=== PATIENT | male | born 1960 | race Two or more races ===

== ENCOUNTER 2023-05-07 10:21 | Emergency (ER) | payer OTHER ==
[~2023-05-07] VITALS: Ht 170.2 cm; Wt 90.7 kg
[2023-05-07] MEDS ORDERED: ZESTRIL10 M1 (10:56)
[2023-05-07] MEDS ORDERED: TOPROL XL25 M1 (10:57)
[2023-05-07] MEDS ORDERED: ATORVASTATIN CA10 MG (10:57)
[2023-05-07 11:40] LABS: HEMATOCRIT 37.5 % (39.0-48.0); HEMOGLOBIN 12.2 g/dL (13-16.00); MEAN CELL VOLUME 88.8 fL (80.0-100.00); MEAN CORPUSCULAR HEMOGLOBIN 28.9 pg (27.00-32.0); MEAN CORPUSCULAR HGB CONC 32.5 g/dl (32.0-36.0); PLATELET COUNT 210 K/uL (150-450); RED BLOOD COUNT 4.22 M/uL (4.00-6.00); RED CELL DISTRIBUTION WIDTH 12.7 % (11.5-14.5)
[2023-05-07 11:56] LABS: INR 1.08; PARTIAL THROMBOPLASTIN TIME 29.6 SECONDS (22.0-34.0); PROTHROMBIN TIME 11.3 SECONDS (9.0-11.5)
[2023-05-07 11:57] LABS: CALCIUM 8.1 mg/dL (8.5-10.1); CREATININE SERUM 1.23 mg/dL (0.70-1.30); GFR 59.62; POTASSIUM 3.69 mEq/L (3.5-5.1)
== END 2023-05-07 14:37 | disposition home or self-care (01) ==
LOC: ER 10:21
PROVIDERS: Emergency Medicine
DX: J22 Unspecified acute lower respiratory infection (principal); Z20.822 Contact with and (suspected) exposure to COVID-19